=== PATIENT | female | born 1930 | race Caucasian/White ===

== ENCOUNTER 2017-11-18 22:23 | Inpatient (IN) | payer MEDICARE ==
[~2017-11-18] VITALS: Ht 152.4 cm; Wt 53.5 kg
[2017-11-18 22:55] LABS: BASOPHILS # (AUTO) 0.1 K/uL (0.0-8.0); BASOPHILS % (AUTO) 1.1 % (0.0-2.0); EOSINOPHILS # (AUTO) 0.2 K/uL (0.0-0.7); EOSINOPHILS % (AUTO) 2.5 % (0.0-7.0); HEMATOCRIT 31.6 % (31.2-41.9); HEMOGLOBIN 10.8 g/dL (10.9-14.3); LYMPHOCYTES # (AUTO) 2.1 K/uL (20.0-40.0); LYMPHOCYTES % (AUTO) 30.2 % (20.5-51.5); MEAN CORPUSCULAR HEMOGLOBIN 29.8 uug (24.7-32.8); MEAN CORPUSCULAR HGB CONC 34 g/dL (32.3-35.6); MEAN CORPUSCULAR VOLUME 86.9 fL (75.5-95.3); MONOCYTES # (AUTO) 0.6 K/uL (2.0-10.0); MONOCYTES % (AUTO) 8.9 % (0.0-11.0); NEUTROPHILS % (AUTO) 57.3 % (38.5-71.5); PLATELET COUNT (AUTO) 246 K/uL (179-408); RED BLOOD CELL COUNT(AUTO) 3.63 MIL/uL (3.63-4.92)
--- NOTE | 2017-11-18 23:00 | NUR ---
EKG DONE PATIENT VERY CONFUSED ,AGITATED AT TIMES ,KEEPS ON MOVINGS ,NEEDS REORIENTATION ,EKG RESULT GIVEN TO MD :GENTRY
[2017-11-18 23:09] LABS: ALANINE AMINOTRANSFERASE 22 U/L (14-59); ALKALINE PHOSPHATASE 67 U/L (50-136); ASPARTATE AMINOTRANSFERASE 19 U/L (15-37); BILIRUBIN,DIRECT 0.1 mg/dL (0.0-0.2); BILIRUBIN,TOTAL 0.4 mg/dL (0.2-1.0); CARBON DIOXIDE 24 mmol/L (21-32); CHLORIDE 109 mmol/L (98-107); CREATININE 1.3 mg/dL (0.6-1.3); GLUCOSE 112 mg/dL (74-106); POTASSIUM 4.2 mmol/L (3.5-5.1); TOTAL PROTEIN, SERUM 7.3 g/dL (6.4-8.2); UREA NITROGEN, BLOOD 14 mg/dL (7-18)
[2017-11-18] MEDS ORDERED: MAG HYDROX/AL HYDROX/SIMETH 30 ML LIQUID UDC PO PRN (23:15)
[2017-11-18] MEDS ORDERED: MAGNESIUM HYDROXIDE 30 ML LIQUID UDC PO PRN (23:15)
[2017-11-18 23:19] LABS: ETHANOL < 3 MG/DL (0-0)
[2017-11-18 23:20] LABS: ACETAMINOPHEN < 2.0 ug/mL (10-30)
--- NOTE | 2017-11-18 23:39 | NUR ---
REPORT GIVENT Cathy PINEDA RN ,USING SBAR.
[2017-11-18] MEDS ORDERED: MAGN400O6 PO (23:47)
[2017-11-18] MEDS ORDERED: BISA-79 PO (23:47)
[2017-11-18] MEDS ORDERED: ZIPR20VI IM (23:47)
[2017-11-18] MEDS ORDERED: LEVO75TA PO (23:47)
[2017-11-18] MEDS ORDERED: DONE10TA44 PO (23:47)
[2017-11-18] MEDS ORDERED: SENN-22 PO (23:47)
[2017-11-18] MEDS ORDERED: QUET100T PO (23:47)
[2017-11-18] MEDS ORDERED: SILV50CR32 TP (23:47)
[2017-11-18] MEDS ORDERED: ENOX40DI SQ (23:47)
[2017-11-18] MEDS ORDERED: FAMO20TA41 PO (23:47)
[2017-11-18] MEDS ORDERED: ASPI81TA31 PO (23:47)
[2017-11-18] MEDS ORDERED: QUET25TA PO (23:47)
--- NOTE | 2017-11-18 23:48 | NUR ---
Pt. admitted to 139 A , under care of -VIKTORIA HEATON Belongs List completed,D/C HEPLOCK LEFT FA.V/S WNL .NO RESPIRATORY DISTRESS.
--- NOTE | 2017-11-18 23:50 | NUR ---
ADMISSION NOTE: Received a 86 y.o. Female from ER under the care of Dr. Russell/ Ash Blue CASH MANAGEMENT SPECIALIST in stable condition. Patient was originally from [facility] for treatment of UTI. According to the HOLD once medically cleared, patient remained agitated, confused and non compliant. She was then placed on the 5150 Hold for GD. Patient is alert to self only. Upon admission patient appears to be anxious, guarded, disheveled, tense, malodorous and agitated. Patient states "show me to the door", "I want to get out of here". Patient is a poor historian and poor insight. Oriented patient about the unit rules. Patient is confused and therefore is unable to comprehend to the unit rules or sign paperwork, co-signed with analyst food and beverage. Vital signs stable. Patient is able to ambulate with standby assist. Escorted her to the shower room for skin check and shower. long term assessment done. She was anxious and needs re-direction from staff. Noted raised bump with discoloration behind the left side of the neck, scabs on the left upper back, left elbows and bruise on the left outer thigh. Personal belongings completed. Safety initiated. Advisement and patient rights handbook given. Fall precautions observed. Will closely monitor.
[2017-11-19] MEDS: ACETAMINOPHEN 325 MG TABLET PO PRN ×2 (00:33→22:26)
[2017-11-19] MEDS: TEMAZEPAM 7.5 MG CAPSULE PO PRN ×2 (00:34→21:17)
--- NOTE | 2017-11-19 07:00 | NUR ---
PT SLEPT FIVE HOURS AND FIFTEEN MINUTES. PT SHOWS NO SIGNS OF DISTRESS. PT COOPERATIVE WITH CARE. PLEASANT WHEN APPROACHED BUT SOMETIMES AGGRESSIVE. REORIENTATION AND REDIRECTION NEEDED. SAFETY AND COMFORT PROVIDED. ALL NEEDS ARE MET.WILL ENDORSE TO DAYSHIFT NURSE FOR CONTINUITY OF CARE.
[2017-11-19 07:30] VITALS: BP 134/50
--- NOTE | 2017-11-19 07:30 | NUR ---
Recieved pt lying in bed, awake and oriented to her name but very forgetful of time and place. Color is slightly pale, and moves all extremeties well. Still paranoid and delusional stating that we are trying to stab her. Introduced my name and explained the reason of taking her blood pressure.
[2017-11-19 09:44] LABS: *BILIRUBIN,URIN NEGATIVE (NEGATIVE); *BLOOD, URINE 1+ (NEGATIVE); *CLARITY,URINE CLEAR (CLEAR); *COLOR,URINE YELLOW (YELLOW); *KETONES,URINE NEGATIVE (NEGATIVE); *PROTEIN,URINE NEGATIVE (NEGATIVE); *UROBILINOGEN,URINE 0.2 E.U./dl (NORMAL); LEUKOCYTE ESTERASE ,URINE TRACE (NEGATIVE); NITRITE, URINE NEGATIVE (NEGATIVE); PH,URINE 5.5 (5.0-8.0); UGLUCOSE NEGATIVE (NEGATIVE)
[2017-11-19 09:46] LABS: BACTERIA,URINE FEW /HPF (NONE SEEN); SQUAMOUS EPITHELIAL CELL,UR FEW /HPF (NONE SEEN)
--- NOTE | 2017-11-19 13:30 | NUR ---
Seen and examined by Dr Sharif with new orders.
[2017-11-19] MEDS ORDERED: BISACODYL 5 MG TABLET.DR PO PRN (15:00)
[2017-11-19] MEDS ORDERED: MAGNESIUM HYDROXIDE 30 ML LIQUID UDC PO PRN (15:00)
[2017-11-19] MEDS ORDERED: FAMOTIDINE 20 MG TABLET PO SCH (15:00)
--- NOTE | 2017-11-19 15:20 | NUR ---
Keflex antibiotic medication given orally as ordered.
[2017-11-19] MEDS: CEPHALEXIN MONOHYDRATE 250 MG CAPSULE PO SCH ×2 (15:33→21:18)
[2017-11-19 17:38] VITALS: BP 117/63
[2017-11-19 20:04] VITALS: BP 132/65
[2017-11-19] MEDS: LORAZEPAM 0.5 MG TABLET PO PRN (22:26)
[2017-11-19] MEDS: RIVASTIGMINE TARTRATE 1.5 MG CAPSULE PO SCH (23:50)
[2017-11-19] MEDS: risperiDONE 0.25 MG TABLET PO SCH (23:51)
[2017-11-20] MEDS: CEPHALEXIN MONOHYDRATE 250 MG CAPSULE PO SCH ×3 (06:16→22:05)
[2017-11-20] MEDS: LEVOTHYROXINE SODIUM 75 MCG TABLET PO SCH (06:16)
[2017-11-20 07:52] VITALS: BP 115/52
[2017-11-20] MEDS: LORAZEPAM 0.5 MG TABLET PO PRN ×2 (09:06→12:44)
[2017-11-20] MEDS: risperiDONE 0.25 MG TABLET PO SCH ×2 (09:07→20:23)
[2017-11-20] MEDS: ASPIRIN 81 MG TAB.CHEW PO SCH (09:07)
[2017-11-20] MEDS: FAMOTIDINE 20 MG TABLET PO SCH (09:07)
[2017-11-20] MEDS: RIVASTIGMINE TARTRATE 1.5 MG CAPSULE PO SCH ×2 (09:07→20:23)
[2017-11-20] MEDS: SENNOSIDES/DOCUSATE SODIUM TABLET PO SCH (09:08)
[2017-11-20] MEDS: ENOXAPARIN SODIUM 30 MG/0.3 ML DISP.SYRIN SQ SCH (09:09)
[2017-11-20] MEDS: SILVER SULFADIAZINE 1% CREAM 50 GM TP SCH (09:10)
[2017-11-20] MEDS: ACETAMINOPHEN 325 MG TABLET PO PRN (12:44)
[2017-11-20 15:18] VITALS: BP 115/50
[2017-11-20 20:00] VITALS: BP 141/59
[2017-11-21] MEDS: CEPHALEXIN MONOHYDRATE 250 MG CAPSULE PO SCH ×3 (06:51→21:26)
[2017-11-21] MEDS: LEVOTHYROXINE SODIUM 75 MCG TABLET PO SCH (06:51)
[2017-11-21 07:30] VITALS: BP 170/50
[2017-11-21] MEDS: LORAZEPAM 0.5 MG TABLET PO PRN (07:49)
[2017-11-21] MEDS: FAMOTIDINE 20 MG TABLET PO SCH (08:16)
[2017-11-21] MEDS: RIVASTIGMINE TARTRATE 1.5 MG CAPSULE PO SCH ×2 (08:16→20:27)
[2017-11-21] MEDS: risperiDONE 0.25 MG TABLET PO SCH ×2 (08:16→20:27)
[2017-11-21] MEDS: ASPIRIN 81 MG TAB.CHEW PO SCH (08:16)
[2017-11-21] MEDS: SENNOSIDES/DOCUSATE SODIUM TABLET PO SCH (08:16)
[2017-11-21] MEDS: SILVER SULFADIAZINE 1% CREAM 50 GM TP SCH (08:17)
[2017-11-21] MEDS: ENOXAPARIN SODIUM 30 MG/0.3 ML DISP.SYRIN SQ SCH (08:19)
[2017-11-21] MEDS: AMLODIPINE 5 MG TABLET PO SCH ×2 (12:19→20:28)
[2017-11-21 16:00] VITALS: BP 161/58
--- NOTE | 2017-11-21 16:21 | NUR ---
Initial DC Instructions: Patient currently resides at an & [[address] [place] [address]; [phone]]. Spoke with Kishore at the [facility] ([phone]) who states the patient can return there when ready for discharge. Given patient's current state, patient may benefit from temporary SNF placement. SW will continue to collaborate with pt, B&C, and MD regarding most appropriate discharge plans for this patient. SW will form a safe and proper discharge plan.
[2017-11-21 20:01] VITALS: BP 160/57
[2017-11-21 21:27] VITALS: BP 150/65
[2017-11-22] MEDS: CEPHALEXIN MONOHYDRATE 250 MG CAPSULE PO SCH ×2 (06:02→13:14)
[2017-11-22] MEDS: LEVOTHYROXINE SODIUM 75 MCG TABLET PO SCH (06:02)
[2017-11-22 07:30] VITALS: BP 140/64
[2017-11-22] MEDS: ENOXAPARIN SODIUM 30 MG/0.3 ML DISP.SYRIN SQ SCH (08:12)
[2017-11-22] MEDS: SILVER SULFADIAZINE 1% CREAM 50 GM TP SCH (08:12)
[2017-11-22] MEDS: SENNOSIDES/DOCUSATE SODIUM TABLET PO SCH (08:32)
[2017-11-22] MEDS: FAMOTIDINE 20 MG TABLET PO SCH (08:32)
[2017-11-22] MEDS: ACETAMINOPHEN 325 MG TABLET PO PRN (08:32)
[2017-11-22] MEDS: risperiDONE 0.25 MG TABLET PO SCH (08:32)
[2017-11-22] MEDS: ASPIRIN 81 MG TAB.CHEW PO SCH (08:32)
[2017-11-22] MEDS: RIVASTIGMINE TARTRATE 1.5 MG CAPSULE PO SCH (08:32)
[2017-11-22] MEDS: AMLODIPINE 5 MG TABLET PO SCH (08:35)
[2017-11-22 16:20] VITALS: BP 134/64
[2017-11-22 17:28] LABS: BASOPHILS % (AUTO) 0.2 % (0.0-2.0); EOSINOPHILS # (AUTO) 0.1 K/uL (0.0-0.7); EOSINOPHILS % (AUTO) 0.5 % (0.0-7.0); HEMATOCRIT 34.5 % (31.2-41.9); HEMOGLOBIN 11.6 g/dL (10.9-14.3); LYMPHOCYTES # (AUTO) 1.6 K/uL (20.0-40.0); LYMPHOCYTES % (AUTO) 11.9 % (20.5-51.5); MEAN CORPUSCULAR HEMOGLOBIN 29.5 uug (24.7-32.8); MEAN CORPUSCULAR HGB CONC 34 g/dL (32.3-35.6); MEAN CORPUSCULAR VOLUME 87.9 fL (75.5-95.3); MONOCYTES # (AUTO) 1.1 K/uL (2.0-10.0); MONOCYTES % (AUTO) 8.1 % (0.0-11.0); NEUTROPHILS # (AUTO) 10.7 K/uL (1.8-8.9); NEUTROPHILS % (AUTO) 79.3 % (38.5-71.5); PLATELET COUNT (AUTO) 295 K/uL (179-408); RED BLOOD CELL COUNT(AUTO) 3.93 MIL/uL (3.63-4.92); WHITE BLOOD COUNT (AUTO) 13.5 K/uL (3.8-11.8)
[2017-11-22 17:37] LABS: CARBON DIOXIDE 23 mmol/L (21-32); CHLORIDE 105 mmol/L (98-107); CREATININE 1.4 mg/dL (0.6-1.3); GLUCOSE 103 mg/dL (74-106); POTASSIUM 4.2 mmol/L (3.5-5.1); UREA NITROGEN, BLOOD 22 mg/dL (7-18)
[2017-11-22] MEDS ORDERED: TEMA7.5C2 PO (18:30)
[2017-11-22] MEDS ORDERED: CEPH-569 PO (18:30)
[2017-11-22] MEDS ORDERED: RISP0.2515 PO (18:30)
[2017-11-22] MEDS ORDERED: RIVA1.5C7 PO (18:30)
[2017-11-22] MEDS ORDERED: ACET325T53 PO (18:30)
[2017-11-22] MEDS ORDERED: SENN1TAB33 PO (18:30)
[2017-11-22] MEDS ORDERED: AMLO5TAB7 PO (18:30)
[2017-11-22] MEDS ORDERED: BISA10SU8 RC (18:30)
[2017-11-22] MEDS ORDERED: SILV50CR32 TP (18:30)
[2017-11-22] MEDS ORDERED: FAMO-130 PO (18:30)
[2017-11-22] MEDS ORDERED: MAG-55 PO (18:30)
[2017-11-22] MEDS ORDERED: LORA0.5T PO (18:30)
[2017-11-25] MEDS ORDERED: CLOT30CR24 TOP (10:30)
== END 2017-11-22 17:05 | DRG 885 ==
LOC: EDBD → ER 22:28 → GPS 23:56
PROVIDERS: ADMIT Psychiatry & Neurology Psychiatry; ATTEND Nurse Practitioner Acute Care
DX: F29 Unspecified psychosis not due to a substance or known physiological condition (principal); G93.40 Encephalopathy, unspecified; N39.0 Urinary tract infection, site not specified; F03.90 Unspecified dementia, unspecified severity, without behavioral disturbance, psychotic disturbance, mood disturbance, and anxiety; E03.9 Hypothyroidism, unspecified; I10 Essential (primary) hypertension; D64.9 Anemia, unspecified
CPT/HCPCS: 36415; 70030-TC; 70450; 71045; 85025; 86850; 86900; 86901; 87086; 93005; 97116; 97530; A4663; G0480; G0480-TC; J1650

== ENCOUNTER 2017-11-22 17:24 | Inpatient (IN) | payer MEDICARE ==
[~2017-11-22] VITALS: Ht 152.4 cm; Wt 53.5 kg
[~2017-11-22 17:24] MED LIST: ASPI81TA31 PO; BISA-79 PO; ENOX40DI SQ; FAMO20TA41 PO; LEVO75TA PO; MAGN400O6 PO; SENN-22 PO; SILV50CR32 TP
--- NOTE | 2017-11-22 17:32 | NUR ---
TELESTROKE ACTIVATED SPOKE WITH CERTIFIED OPHTHALMIC SURGICAL ASSISTANT DR MITCHELL SUPPORT ENGINEER.
--- NOTE | 2017-11-22 17:50 | NUR ---
Nursing hands off report received from nursing dimension stone quarry supervisor Norberto & U nurse Tobi. Learning And Development Associate assumes care now. Patient is waiting for the [facility] hospitalist's callback. "No TPA, no thrombectomy and no aggressive treatment" recommended per TELE STROKE neurologist Guadalupe. Patient is for admission to 2nd floor.
--- NOTE | 2017-11-22 17:55 | NUR ---
Per MHU nurse Tobi, this patient's baseline is non-ambulatory, whispers incomprehensible words with no meaningful conversation but the left facial droop & left arm weakness are new.
[2017-11-22] MEDS ORDERED: IOHEXOL 350 100 ML INFUS..BTL ONE (17:56)
[2017-11-22] MEDS ORDERED: SWABABLE VALVE TRANSFER SET EA MC ONE (17:56)
[2017-11-22] MEDS ORDERED: IV NORMAL SALINE 250 ML IV ONE (17:56)
[2017-11-22] MEDS ORDERED: NORMAL SALINE FLUSH 10 ML DISP.SYRIN ONE (17:56)
[2017-11-22 18:11] LABS: CARBON DIOXIDE 25 mmol/L (21-32); CHLORIDE 106 mmol/L (98-107); CREATININE 1.4 mg/dL (0.6-1.3); GLUCOSE 101 mg/dL (74-106); UREA NITROGEN, BLOOD 23 mg/dL (7-18)
[2017-11-22 18:13] LABS: BASOPHILS # (AUTO) 0.1 K/uL (0.0-8.0); BASOPHILS % (AUTO) 0.5 % (0.0-2.0); EOSINOPHILS # (AUTO) 0.1 K/uL (0.0-0.7); EOSINOPHILS % (AUTO) 0.4 % (0.0-7.0); HEMATOCRIT 34.7 % (31.2-41.9); HEMOGLOBIN 11.8 g/dL (10.9-14.3); LYMPHOCYTES # (AUTO) 2.1 K/uL (20.0-40.0); LYMPHOCYTES % (AUTO) 13.9 % (20.5-51.5); MEAN CORPUSCULAR HEMOGLOBIN 29.7 uug (24.7-32.8); MEAN CORPUSCULAR HGB CONC 34 g/dL (32.3-35.6); MEAN CORPUSCULAR VOLUME 87.7 fL (75.5-95.3); MONOCYTES # (AUTO) 1.2 K/uL (2.0-10.0); MONOCYTES % (AUTO) 7.6 % (0.0-11.0); NEUTROPHILS % (AUTO) 77.6 % (38.5-71.5); PLATELET COUNT (AUTO) 251 K/uL (179-408); RED BLOOD CELL COUNT(AUTO) 3.96 MIL/uL (3.63-4.92); WHITE BLOOD COUNT (AUTO) 15.4 K/uL (3.8-11.8)
[2017-11-22 18:16] LABS: ALANINE AMINOTRANSFERASE 22 U/L (14-59); ALKALINE PHOSPHATASE 73 U/L (50-136); ASPARTATE AMINOTRANSFERASE 24 U/L (15-37); BILIRUBIN,DIRECT 0.1 mg/dL (0.0-0.2); BILIRUBIN,TOTAL 0.6 mg/dL (0.2-1.0); TOTAL PROTEIN, SERUM 7.4 g/dL (6.4-8.2)
[2017-11-22] MEDS ORDERED: FAMO-130 PO (18:30)
[2017-11-22] MEDS ORDERED: SILV50CR32 TP (18:30)
[2017-11-22] MEDS ORDERED: RISP0.2515 PO (18:30)
[2017-11-22] MEDS ORDERED: VANCOMYCIN IV 1,000 MG in IV DEXTROSE 5% 250 ML IV ONE (18:30)
[2017-11-22] MEDS ORDERED: AMLO5TAB7 PO (18:30)
[2017-11-22] MEDS ORDERED: PIPERACILLIN SODIUM/TAZOBACTAM 3.375 G in IV DEXTROSE 5% 50 ML IV ONE (18:30)
[2017-11-22] MEDS ORDERED: MAG-55 PO (18:30)
[2017-11-22] MEDS ORDERED: VANCOMYCIN IV 200 ML ONE (18:30)
[2017-11-22] MEDS ORDERED: ACET325T53 PO (18:30)
[2017-11-22] MEDS ORDERED: RIVA1.5C7 PO (18:30)
[2017-11-22] MEDS ORDERED: SENN1TAB33 PO (18:30)
[2017-11-22] MEDS ORDERED: TEMA7.5C2 PO (18:30)
[2017-11-22] MEDS ORDERED: LORA0.5T PO (18:30)
[2017-11-22] MEDS ORDERED: PIPERACILLIN/TAZOBACTAM/D5W 50 ML IV ONE (18:30)
[2017-11-22] MEDS ORDERED: BISA10SU8 RC (18:30)
[2017-11-22] MEDS ORDERED: CEPH-569 PO (18:30)
[2017-11-22] MEDS ORDERED: ACETAMINOPHEN 325 MG TABLET PO PRN (18:45)
[2017-11-22] MEDS ORDERED: MAGNESIUM HYDROXIDE 30 ML LIQUID UDC PO PRN (18:45)
[2017-11-22] MEDS ORDERED: HYDROCODONE/APAP 5-325MG TABLET PO PRN (18:45)
[2017-11-22] MEDS ORDERED: ONDANSETRON 4 MG/2 ML VIAL IV PRN (18:45)
[2017-11-22] MEDS ORDERED: IV NORMAL SALINE 500 ML BAG IV ONE (19:00)
[2017-11-22 19:13] LABS: *BILIRUBIN,URIN 1+ (NEGATIVE); *BLOOD, URINE Trace-intact (NEGATIVE); *CLARITY,URINE CLEAR (CLEAR); *COLOR,URINE YELLOW (YELLOW); *KETONES,URINE 1+ (NEGATIVE); *PROTEIN,URINE 1+ (NEGATIVE); *UROBILINOGEN,URINE 0.2 E.U./dl (NORMAL); LEUKOCYTE ESTERASE ,URINE NEGATIVE (NEGATIVE); NITRITE, URINE NEGATIVE (NEGATIVE); PH,URINE 5.5 (5.0-8.0); UGLUCOSE NEGATIVE (NEGATIVE)
--- NOTE | 2017-11-22 19:24 | NUR ---
Patient is waiting for telemetry bed & nurse. Patient is more alert, moving all extremities. IV vancomycin started by BRANDYN Ashley. 1st liter bag of Normal saline bolus started by me. SBAR to RN Isael
[2017-11-22 19:25] LABS: THYROID STIMULATING HORMONE 7.204 mIU/mL (0.358-3.740)
[2017-11-22 19:33] LABS: *AMPHETAMINE, URINE NEGATIVE (NEGATIVE); *BARBITURATE, URINE NEGATIVE (NEGATIVE); *CANNABINOID, URINE NEGATIVE (NEGATIVE); *COCCAINE, URINE NEGATIVE (NEGATIVE); *OPIATE, URINE NEGATIVE (NEGATIVE); *PHENCYCLIDINE SCREEN,URINE NEGATIVE (NEGATIVE)
--- NOTE | 2017-11-22 19:33 | NUR ---
Assumed care of patient. Patient remains in bed, pending inpatient admission to telemetry under Dr Henriquez. patient to be admitted to bed 210 under RnMartha. Patient in bed, Vancomycin infusing, initiated by AM shift RN. Will continue to monitor patient.
[2017-11-22 19:39] LABS: MUCUS,URINE MODERATE /LPF (0-FEW); SQUAMOUS EPITHELIAL CELL,UR FEW /HPF (NONE SEEN); WBC,URINE 0-3 /HPF (0-3)
--- NOTE | 2017-11-22 19:50 | NUR ---
Report given to Martha AHUMADA on telemetry
--- NOTE | 2017-11-22 19:51 | NUR ---
CT was complete as inpatient , Telemetry Charge Nurse Glory.
[2017-11-22 20:00] VITALS: BP 142/56
--- NOTE | 2017-11-22 20:15 | NUR ---
PATIENT FROM ER DX: R/O TIA PER SUPPLIER MANAGER CT SCAN RESULT NO EVIDENCE OF ACUTE INTRACRANIAL MASS .UPON ASSESSMENT PATIENT VERY CONFUSED . ALOC, DOESN'T FOLLOW COMMANDS . ANXIOUS AND AT TIMES AGGRESSIVE AND FIGHTS.SAFETY MEASURES DONE AND ORIENTED PATIENT WITH ROOM AND EQUIPMENT . BED ALARM ON .PHOTO TAKEN ON PATIENT SKIN INJURY AND PLACED WC CONSULT .INCONTINENT OF URINE AND CHANGED SOILED LINENS AND GOWN .
--- NOTE | 2017-11-22 20:30 | NUR ---
NIHSS SCALE SCORE IS HIGH 21. UNABLE TO DO IT ACCURATELY PATIENT CONFUSED ,UNABLE TO FOLLOW INSTRUCTION AND COMMANDS .
[2017-11-22] MEDS ORDERED: BLOOD SUGAR DIAGNOSTIC 1 EACH STRIP VI SCH (21:00)
--- NOTE | 2017-11-22 21:00 | NUR ---
NURSING SWALLOW EVALUATION DONE PATIENT FAILED.CONFUSED . UNABLE TO FOLLOW COMMANDS .
--- NOTE | 2017-11-22 21:00 | NUR ---
SLEEPING IN BED . EASILY AROUSABLE . NO RESPIRATORY DISTRESS NOTED , HOB . MOVED ALL EXTREMITIES ,BUT DOES NOT FOLLOWS COMMANDS .
[2017-11-22] MEDS: IV NS 1000 ML 1,000 ML IV SCH (23:16)
[2017-11-22] MEDS: BLOOD SUGAR DIAGNOSTIC 1 EACH STRIP VI SCH (23:27)
[2017-11-23 00:43] VITALS: BP 134/54
[2017-11-23] MEDS: PIPERACILLIN/TAZOBACTAM/D5W 3.375 G in PREMIXED 1 EACH IV SCH ×3 (03:10→17:00)
[2017-11-23] MEDS: IV NS 1000 ML 1,000 ML IV SCH ×3 (05:17→23:49)
[2017-11-23 05:22] VITALS: BP 126/51
[2017-11-23] MEDS: BLOOD SUGAR DIAGNOSTIC 1 EACH STRIP VI SCH ×4 (06:51→23:50)
[2017-11-23 07:20] LABS: BASOPHILS # (AUTO) 0.1 K/uL (0.0-8.0); BASOPHILS % (AUTO) 0.6 % (0.0-2.0); EOSINOPHILS # (AUTO) 0.2 K/uL (0.0-0.7); EOSINOPHILS % (AUTO) 1.7 % (0.0-7.0); HEMATOCRIT 30.2 % (31.2-41.9); HEMOGLOBIN 10.5 g/dL (10.9-14.3); LYMPHOCYTES % (AUTO) 9.7 % (20.5-51.5); MEAN CORPUSCULAR HEMOGLOBIN 30.4 uug (24.7-32.8); MEAN CORPUSCULAR HGB CONC 35 g/dL (32.3-35.6); MEAN CORPUSCULAR VOLUME 87.6 fL (75.5-95.3); MONOCYTES # (AUTO) 0.8 K/uL (2.0-10.0); MONOCYTES % (AUTO) 7.6 % (0.0-11.0); NEUTROPHILS % (AUTO) 80.4 % (38.5-71.5); PLATELET COUNT (AUTO) 270 K/uL (179-408); RED BLOOD CELL COUNT(AUTO) 3.45 MIL/uL (3.63-4.92)
[2017-11-23 07:35] LABS: CARBON DIOXIDE 24 mmol/L (21-32); CHLORIDE 107 mmol/L (98-107); CHOLESTEROL 161 mg/dL (<200); CREATININE 1.2 mg/dL (0.6-1.3); GLUCOSE 80 mg/dL (74-106); HDL CHOLESTEROL 65 mg/dL (40-60); MAGNESIUM 1.8 mg/dL (1.8-2.4); PHOSPHOROUS 3.2 mg/dL (2.5-4.9); POTASSIUM 3.5 mmol/L (3.5-5.1); TRIGLYCERIDES 83 MG/DL (30-150); UREA NITROGEN, BLOOD 20 mg/dL (7-18)
[2017-11-23 08:00] VITALS: BP 144/56
[2017-11-23] MEDS: ASPIRIN 81 MG TAB.CHEW PO SCH ×2 (09:45→17:32)
--- NOTE | 2017-11-23 10:54 | NUR ---
As reported by community association manager, Pt's valuables remain in MHU.
[2017-11-23 11:50] VITALS: BP 124/44
--- NOTE | 2017-11-23 13:40 | NUR ---
Clinical pharmacy note-Vancomycin dosing per pharmacy Subjective: To continue Vancomycin dosing on this 86 yo female patient for sepsis, likely UTI Objective: BUN 20 Scr 1.2 WBC 10 Temp 97.8 ht 152.4 cm wt 53.5 kg Assessment/Plan: Patient received vanco 1gm IVPB x1 yesterday at 1830. Due to unstable srcr, will dose by level. Vanco random level ordered for today at 1700 (pending). Will review the level & re-dose if appropriate. Will monitor daily. Addendum: 11/23/17 at 1811 by CAIO STROUD RANDOM VANCOMYCIN LEVEL 6.7 WILL GIVE VANCOMYCIN 1GM IVPB THIS EVENING REPEAT RANDOM LEVEL TOMORROW
--- NOTE | 2017-11-23 14:56 | NUR ---
WOUND CARE CONSULT: PT PRESENTS WITH BREASTFOLD REDNESS AND RASH, SOME BRUISING AND SKIN STAINING OF BUTTOCKS, PRESENT ON ADMISSION. RECOMMENDATIONS MADE FOR SKIN PROTECTION AND CARE. DISCUSSED WITH NURSING STAFF. WILL SEE PRN. JOYNER IN AGREEMENT WITH PLAN OF CARE. Addendum: 11/23/17 at 1458 by VITOR SPARKS RN Amended: Links added.
[2017-11-23 15:56] VITALS: BP 121/44
[2017-11-23] MEDS: CLOTRIMAZOLE 1% CREAM 30 GM TUBE TOP SCH (17:00)
--- NOTE | 2017-11-23 17:32 | NUR ---
ASPIRIN GIVEN AFTER SWALLOW EVAL CLEARANCE. CONTINUE TO MONITOR PTS.
[2017-11-23] MEDS ORDERED: VANCOMYCIN IV 1 G in PREMIXED 0 EACH IV ONE (18:15)
[2017-11-23] MEDS ORDERED: OLANZAPINE 10 MG VIAL IM PRN (19:00)
[2017-11-23 20:00] VITALS: BP 136/48
--- NOTE | 2017-11-23 20:00 | NUR ---
Received Pt to care, confused and disoriented, but able to follow some commands. VS stable, 20g IV infusing NS 100ml/hr to (R) hand. Redness noted to (B) breastfold and sacral areas, Z guard applied. Scheduled HS Culturelle refused. In no acute physical distress at this time.
[2017-11-23] MEDS: LACTOBACILLUS RHAMNOSUS GG 1 EACH CAPSULE PO SCH ×2 (20:53→20:59)
[2017-11-24 00:04] VITALS: BP 123/63
[2017-11-24] MEDS: BLOOD SUGAR DIAGNOSTIC 1 EACH STRIP VI SCH ×4 (00:27→23:10)
[2017-11-24] MEDS: PIPERACILLIN/TAZOBACTAM/D5W 3.375 G in PREMIXED 1 EACH IV SCH ×3 (01:27→17:04)
--- NOTE | 2017-11-24 01:35 | NUR ---
Midnight BS initially 58. Sierra juice given and BS re-checked with a result of 103.
[2017-11-24 05:09] VITALS: BP 140/60
--- NOTE | 2017-11-24 05:27 | NUR ---
Small skin opening noted to medial anterior suprapubic area, no s/s of infection. Photograph taken and placed in chart. investment banker aware. BMx2, loose, water greenish stool. Repositioned q 2 hours, bony prominences padded, Z guard applied to sacral area. Skin kept clean and dry. AM BS 73. 20v IV to (R) hand remains intact infusing NS 100ml/hr. VS stable, breathing even and unlabored, in no acute distress. Care to be endorsed to day shift RN.
[2017-11-24] MEDS: Z GUARD REMEDY PASTE 57 GM TUBE TOP PRN ×2 (05:31→10:30)
--- NOTE | 2017-11-24 07:20 | NUR ---
RECVD SHIFT REPORT. PATIENT RECEVD RESTING IN BED ALERT AND RESPONSIVE, NO DISTRESS NOTED, SIDE RAILS UP X2, BED ALARM ON, DVT PUMPS FUNCTIONING CONTINUE TO MONITOR. IV FLUIDS NS RUNNING AT 100ML/HR
[2017-11-24] MEDS: LACTOBACILLUS RHAMNOSUS GG 1 EACH CAPSULE PO SCH ×2 (08:35→20:13)
[2017-11-24] MEDS: ASPIRIN 81 MG TAB.CHEW PO SCH (08:35)
[2017-11-24] MEDS: CLOTRIMAZOLE 1% CREAM 30 GM TUBE TOP SCH ×2 (08:35→17:04)
[2017-11-24 08:37] VITALS: BP 157/58
--- NOTE | 2017-11-24 09:10 | NUR ---
Clinical pharmacy note-Vancomycin dosing per pharmacy Subjective: To continue Vancomycin dosing on this 86 yo female patient for sepsis, likely UTI Objective: BUN 20 (11/23) Scr 1.2 (11/23) WBC 10 (11/23) Temp 97.8 ht 152.4 cm wt 53.5 kg Assessment/Plan: Patient received vanco 1gm IVPB x1 yesterday at 1800. Due to unstable srcr, will dose by level. Vanco random level ordered for today at 1700 (pending). Will review the level & re-dose if appropriate. Will monitor daily. Addendum: 11/24/17 at 1846 by CAIO STROUD RANDOM VANCOMYCIN LEVEL 13.5. GIVE ANOTHER 1GM OF VANCOMYCIN TODAY REPEAT RANDOM LEVEL TOMORROW
[2017-11-24 10:32] LABS: BASOPHILS # (AUTO) 0.1 K/uL (0.0-8.0); BASOPHILS % (AUTO) 0.6 % (0.0-2.0); EOSINOPHILS # (AUTO) 0.2 K/uL (0.0-0.7); EOSINOPHILS % (AUTO) 1.5 % (0.0-7.0); HEMATOCRIT 30.9 % (31.2-41.9); HEMOGLOBIN 10.6 g/dL (10.9-14.3); LYMPHOCYTES # (AUTO) 1.3 K/uL (20.0-40.0); LYMPHOCYTES % (AUTO) 11.7 % (20.5-51.5); MEAN CORPUSCULAR HEMOGLOBIN 29.9 uug (24.7-32.8); MEAN CORPUSCULAR HGB CONC 34 g/dL (32.3-35.6); MEAN CORPUSCULAR VOLUME 87.4 fL (75.5-95.3); MONOCYTES # (AUTO) 0.8 K/uL (2.0-10.0); MONOCYTES % (AUTO) 6.9 % (0.0-11.0); NEUTROPHILS # (AUTO) 8.7 K/uL (1.8-8.9); NEUTROPHILS % (AUTO) 79.3 % (38.5-71.5); PLATELET COUNT (AUTO) 337 K/uL (179-408); RED BLOOD CELL COUNT(AUTO) 3.53 MIL/uL (3.63-4.92)
[2017-11-24 10:37] LABS: CARBON DIOXIDE 24 mmol/L (21-32); CHLORIDE 109 mmol/L (98-107); CREATININE 1.2 mg/dL (0.6-1.3); GLUCOSE 113 mg/dL (74-106); POTASSIUM 3.4 mmol/L (3.5-5.1); UREA NITROGEN, BLOOD 11 mg/dL (7-18)
[2017-11-24] MEDS ORDERED: POTASSIUM CHLORIDE 20 MEQ TAB.PRT.SR PO ONE (11:15)
[2017-11-24 11:42] VITALS: BP 130/55
[2017-11-24] MEDS: IV NS 1000 ML 1,000 ML IV SCH ×2 (11:54→19:48)
[2017-11-24] MEDS: POTASSIUM CHLORIDE 10 MEQ, LIDOCAINE-MPF 1% 1 ML in IV DEXTROSE 5% 100 ML IV SCH ×2 (12:48→13:55)
[2017-11-24 15:49] VITALS: BP 150/78
--- NOTE | 2017-11-24 18:13 | NUR ---
Patient has been cooperative with care, no distress noted throughout shift. oriented to self only needs frequent redirection. Patient in bed, no distress noted at this time, bed in low position, side rails up x2, bed alarm on. DVT pumps on.
[2017-11-24 19:00] VITALS: BP 145/69
--- NOTE | 2017-11-24 19:30 | NUR ---
Received patient from day shift nurse. Patient is stable with no acute distress noted. Oriented to self only & needs frequent redirection. IV fluids running into left hand at 100cc/hr with no signs of infiltration or swelling at IV site. Vital signs are within range at start of shift. Bed in low position, locked, x2 side rails up. Bed alarm on. DVT pumps on patient & functioning. Call light within reach. Will continue to monitor through shift.
[2017-11-24] MEDS ORDERED: VANCOMYCIN IV 1 G in PREMIXED 0 EACH IV ONE (20:00)
[2017-11-25] MEDS: PIPERACILLIN/TAZOBACTAM/D5W 3.375 G in PREMIXED 1 EACH IV SCH ×3 (01:31→18:56)
[2017-11-25 04:00] VITALS: BP 155/53
[2017-11-25] MEDS: BLOOD SUGAR DIAGNOSTIC 1 EACH STRIP VI SCH ×4 (06:12→23:00)
[2017-11-25] MEDS: IV NS 1000 ML 1,000 ML IV SCH ×2 (06:12→16:18)
[2017-11-25 06:23] LABS: BASOPHILS # (AUTO) 0.2 K/uL (0.0-8.0); BASOPHILS % (AUTO) 2.9 % (0.0-2.0); EOSINOPHILS # (AUTO) 0.1 K/uL (0.0-0.7); EOSINOPHILS % (AUTO) 1.7 % (0.0-7.0); HEMATOCRIT 27.8 % (31.2-41.9); HEMOGLOBIN 9.5 g/dL (10.9-14.3); LYMPHOCYTES # (AUTO) 1.7 K/uL (20.0-40.0); LYMPHOCYTES % (AUTO) 19.8 % (20.5-51.5); MEAN CORPUSCULAR HEMOGLOBIN 29.9 uug (24.7-32.8); MEAN CORPUSCULAR HGB CONC 34 g/dL (32.3-35.6); MEAN CORPUSCULAR VOLUME 86.9 fL (75.5-95.3); MONOCYTES # (AUTO) 0.9 K/uL (2.0-10.0); MONOCYTES % (AUTO) 10.1 % (0.0-11.0); NEUTROPHILS # (AUTO) 5.6 K/uL (1.8-8.9); NEUTROPHILS % (AUTO) 65.5 % (38.5-71.5); PLATELET COUNT (AUTO) 318 K/uL (179-408); RED BLOOD CELL COUNT(AUTO) 3.19 MIL/uL (3.63-4.92); WHITE BLOOD COUNT (AUTO) 8.6 K/uL (3.8-11.8)
[2017-11-25 06:39] LABS: CARBON DIOXIDE 23 mmol/L (21-32); CHLORIDE 110 mmol/L (98-107); CREATININE 1.2 mg/dL (0.6-1.3); GLUCOSE 95 mg/dL (74-106); MAGNESIUM 1.5 mg/dL (1.8-2.4); PHOSPHOROUS 2.3 mg/dL (2.5-4.9); POTASSIUM 3.3 mmol/L (3.5-5.1); UREA NITROGEN, BLOOD 10 mg/dL (7-18)
--- NOTE | 2017-11-25 06:55 | NUR ---
Patient slept well during the night. Cooperative with care. All needs attended to. Kept clean, dry, & changed per soiling. Skin care provided. All medications administered per MD order. Blood sugar this AM at 95. Safety & comfort measures provided. Bed in low position, locked, x2 side rails up. Bed alarm on through out shift. Call light within reach. Will endorse to oncoming shift.
[2017-11-25] MEDS: LACTOBACILLUS RHAMNOSUS GG 1 EACH CAPSULE PO SCH ×2 (08:45→20:23)
[2017-11-25] MEDS: ASPIRIN 81 MG TAB.CHEW PO SCH (08:45)
[2017-11-25] MEDS: CLOTRIMAZOLE 1% CREAM 30 GM TUBE TOP SCH ×2 (08:55→17:14)
[2017-11-25] MEDS ORDERED: CLOT30CR24 TOP (10:30)
[2017-11-25 11:52] VITALS: BP 148/65
--- NOTE | 2017-11-25 13:18 | NUR ---
Clinical pharmacy note-Vancomycin dosing per pharmacy Subjective: To continue Vancomycin dosing on this 86 yo female patient for sepsis, likely UTI Objective: BUN 10 Scr 1.2 WBC 8.6 Temp 98 ht 152.4 cm wt 53.5 kg Assessment/Plan: Patient received vanco 1gm IVPB x1 yesterday at 1948. Due to unstable srcr and advanced age, will dose by level. Vanco random level ordered for today at 1700 (pending). Will review the level & re-dose if appropriate. Will monitor daily. Addendum: 11/25/17 at 1744 by CAIO STROUD RANDOM VANCOMYCIN LEVEL WAS SUPPOSE TO BE DRAWN AT 1700 TODAY INSTEAD LAB JEISON A T 0500 =18.0. CONTINUE VANCOMYCIN AT 1GM Q24H.
[2017-11-25] MEDS ORDERED: POTASSIUM CHLORIDE 20 MEQ TAB.PRT.SR PO ONE (14:30)
[2017-11-25] MEDS ORDERED: POTASSIUM CHLORIDE 20 MEQ POWDER PACKET PO ONE (14:45)
[2017-11-25 15:57] VITALS: BP 139/58
[2017-11-25] MEDS: MAGNESIUM SULFATE/D5W 100 ML IV SCH ×2 (16:16→17:15)
[2017-11-25] MEDS ORDERED: NEUTRA PHOS PACKET PO ONE (17:15)
--- NOTE | 2017-11-25 19:30 | NUR ---
Received patient in stable condition with no acute distress. Patient lying/resting comfortably at start of shift. Vital signs within range. Pertinent assessment completed. A/Ox1 with confusion. Noted with right hand 22G IV site running with IV fluid NS at 100cc/hr. No signs of infiltration or swelling noted at site. On ATB therapy. Bed placed in low position & locked at start of shift. Bed alarm in the on position. Call light within reach. Will continue to monitor through shift.
[2017-11-25] MEDS: VANCOMYCIN IV 1 G in PREMIXED 0 EACH IV SCH (19:44)
[2017-11-25 20:15] VITALS: BP 137/42
[2017-11-26] MEDS: PIPERACILLIN/TAZOBACTAM/D5W 3.375 G in PREMIXED 1 EACH IV SCH ×3 (01:07→17:08)
[2017-11-26] MEDS: IV NS 1000 ML 1,000 ML IV SCH ×3 (03:10→22:14)
[2017-11-26 05:00] VITALS: BP 159/56
[2017-11-26] MEDS: BLOOD SUGAR DIAGNOSTIC 1 EACH STRIP VI SCH ×3 (05:24→17:21)
[2017-11-26 06:19] LABS: CARBON DIOXIDE 23 mmol/L (21-32); CHLORIDE 110 mmol/L (98-107); CREATININE 1.1 mg/dL (0.6-1.3); GLUCOSE 89 mg/dL (74-106); MAGNESIUM 1.9 mg/dL (1.8-2.4); PHOSPHOROUS 2.5 mg/dL (2.5-4.9); POTASSIUM 3.5 mmol/L (3.5-5.1); UREA NITROGEN, BLOOD 6 mg/dL (7-18)
--- NOTE | 2017-11-26 06:25 | NUR ---
Blood sugar this AM at 89. Patient stable through shift & compliant with care. Needs frequent reorienting & redirecting with many periods of confusion. All needs attended to promptly. Skin care provided. Kept clean, dry, changed per soiling. All medications administered per MD order. Safety & comfort measures provided. Call light in reach. Will endorse to day shift nurse.
--- NOTE | 2017-11-26 07:20 | NUR ---
RECEIVED PATIENT ON BED ASLEEP. NO ACUTE DISTRESS NOTED. AAOX1. IV ACCESS ON RIGHT HAND #22 INTACT AND PATENT RUNNING NS @100CC/HR INFUSING WELL. ON [facility] SOFT DIET, TAKES PILLS CRUSHED WITH APPLESAUCE. NO PAIN/DISCOMFORT NOTED AT THIS TIME. COMFORT MEASURES PROVIDED CALL LIGHT WITHIN REACH. WILL CONTINUE TO MONITOR CLOSELY.
[2017-11-26] MEDS: ASPIRIN 81 MG TAB.CHEW PO SCH (08:12)
[2017-11-26] MEDS: LACTOBACILLUS RHAMNOSUS GG 1 EACH CAPSULE PO SCH ×2 (08:12→20:01)
[2017-11-26] MEDS: CLOTRIMAZOLE 1% CREAM 30 GM TUBE TOP SCH ×2 (08:13→17:08)
[2017-11-26 11:33] VITALS: BP 161/53
--- NOTE | 2017-11-26 14:11 | NUR ---
Clinical pharmacy note-Vancomycin dosing per pharmacy Subjective: To continue Vancomycin dosing on this 86 yo female patient for sepsis, likely UTI Objective: BUN 6 Scr 1.1 WBC 8.6(11/26) Temp 98.2 ht 152.4 cm wt 53.5 kg Assessment/Plan: Will continue Vancomycin 1 gram IV every 24hrs(third dose tonight at 1999) and draw trough by 4th dose(not ordered yet). Expected trough will be around 15 to 20. Will monitor renal function closely to adjust the dose if needed.
[2017-11-26 15:05] VITALS: BP 107/85
--- NOTE | 2017-11-26 18:45 | NUR ---
PATIENT PULLED OUT IV ON LEFT WRIST. REINSERTED NEW IV ACCESS ON THE RIGHT FOREARM #22 USING ASEPTIC TECHNIQUE, GOOD VENOUS RETURN NOTED. CONTINUED IV NS @100CC/HR INFUSING WELL. WILL CONTINUE TO MONITOR CLOSELY.
--- NOTE | 2017-11-26 19:25 | NUR ---
RECEIVED PT AWAKE, ALERT AND ORIENTEDX2. PT CONFUSED AND CAN FOLLOW COMMANDS. IV INTACT AND PATENT. PT SHOWS NO SIGNS OF DISTRESS. SAFETY AND COMFORT PROVIDED. WILL CONTINUE TO MONITOR.
[2017-11-26] MEDS: VANCOMYCIN IV 1 G in PREMIXED 0 EACH IV SCH (19:54)
[2017-11-26 20:35] VITALS: BP 172/90
[2017-11-27] VITALS (7 sets, daily range): BP systolic 140–210; BP diastolic 61–79
[2017-11-27] MEDS: BLOOD SUGAR DIAGNOSTIC 1 EACH STRIP VI SCH ×2 (00:20→05:45)
[2017-11-27] MEDS: PIPERACILLIN/TAZOBACTAM/D5W 3.375 G in PREMIXED 1 EACH IV SCH ×3 (01:06→17:27)
--- NOTE | 2017-11-27 06:35 | NUR ---
PT SLEPT THROUGHOUT THE SHIFT. PT SHOWS NO SIGNS OF DISTRESS. IV INTACT AND PATENT.PRESCRIBED MEDICATION GIVEN AND PT TOLERATED IT WELL. PT COOPERATIVE WITH CARE. SAFETY AND COMFORT PROVIDED. ALL NEEDS ARE MET. WILL ENDORSE ACCORDINGLY TO INCOMING NURSE FOR CONTINUITY OF CARE
[2017-11-27 06:42] LABS: BASOPHILS # (AUTO) 0.2 K/uL (0.0-8.0); BASOPHILS % (AUTO) 2.4 % (0.0-2.0); EOSINOPHILS # (AUTO) 0.3 K/uL (0.0-0.7); EOSINOPHILS % (AUTO) 4.3 % (0.0-7.0); HEMATOCRIT 28.1 % (31.2-41.9); HEMOGLOBIN 9.8 g/dL (10.9-14.3); LYMPHOCYTES # (AUTO) 1.4 K/uL (20.0-40.0); LYMPHOCYTES % (AUTO) 22.6 % (20.5-51.5); MEAN CORPUSCULAR HEMOGLOBIN 29.8 uug (24.7-32.8); MEAN CORPUSCULAR HGB CONC 35 g/dL (32.3-35.6); MEAN CORPUSCULAR VOLUME 85.4 fL (75.5-95.3); MONOCYTES # (AUTO) 0.5 K/uL (2.0-10.0); MONOCYTES % (AUTO) 8.1 % (0.0-11.0); NEUTROPHILS # (AUTO) 3.9 K/uL (1.8-8.9); NEUTROPHILS % (AUTO) 62.6 % (38.5-71.5); PLATELET COUNT (AUTO) 301 K/uL (179-408); RED BLOOD CELL COUNT(AUTO) 3.29 MIL/uL (3.63-4.92); WHITE BLOOD COUNT (AUTO) 6.3 K/uL (3.8-11.8)
[2017-11-27] MEDS: IV NS 1000 ML 1,000 ML IV SCH (07:02)
--- NOTE | 2017-11-27 07:10 | NUR ---
RN notes: Received patient in bed awake, alert and oriented x1, in no acute distress. PERRLA. Able to move all 4 extremities without discomfort. Speech is clear, though patient is confused at baseline. Fall precaution in place. IV site on LFA patent, IV fluids NS at 100cc/hr running. Will continue to monitor
[2017-11-27 07:25] LABS: CARBON DIOXIDE 21 mmol/L (21-32); CHLORIDE 113 mmol/L (98-107); CREATININE 1.1 mg/dL (0.6-1.3); GLUCOSE 78 mg/dL (74-106); MAGNESIUM 1.7 mg/dL (1.8-2.4); PHOSPHOROUS 2.9 mg/dL (2.5-4.9); POTASSIUM 3.5 mmol/L (3.5-5.1); UREA NITROGEN, BLOOD 5 mg/dL (7-18)
--- NOTE | 2017-11-27 08:00 | NUR ---
RN notes: Patient noted with elevated BP at 210/79 at this time. Patient is awake, alert and oriented x1, verbally responsive. Patient noted to be confused at baseline. Able to do ROM on all 4 extremities. Bilateral hand grasps equal and strong. PERRLA. Patient denies chest pain or SOB at this time. Speech is clear. HOUSE VISITOR Vera made aware. New orders received, noted and carried out. Will continue to monitor
[2017-11-27] MEDS: ASPIRIN 81 MG TAB.CHEW PO SCH (08:42)
[2017-11-27] MEDS: CLOTRIMAZOLE 1% CREAM 30 GM TUBE TOP SCH ×2 (08:42→17:27)
[2017-11-27] MEDS: LACTOBACILLUS RHAMNOSUS GG 1 EACH CAPSULE PO SCH ×2 (08:42→20:36)
[2017-11-27] MEDS ORDERED: TEMAZEPAM 7.5 MG CAPSULE PO PRN (08:45)
[2017-11-27] MEDS ORDERED: MAGNESIUM SULFATE/D5W 100 ML IV SCH (09:00)
[2017-11-27] MEDS ORDERED: ASPIRIN 81 MG TAB.CHEW PO SCH (09:00)
--- NOTE | 2017-11-27 09:00 | NUR ---
RN notes: Patient Bp rechecked at this time, noted at 152/69 VA of 69. VIKTORIA Gamez made aware. No acute change in LOC noted at this time. Will continue to monitor
[2017-11-27] MEDS: risperiDONE 0.25 MG TABLET PO SCH ×2 (09:50→20:36)
[2017-11-27] MEDS: RIVASTIGMINE TARTRATE 1.5 MG CAPSULE PO SCH ×2 (09:50→20:36)
[2017-11-27] MEDS: AMLODIPINE 5 MG TABLET PO SCH (09:50)
[2017-11-27] MEDS: SENNOSIDES/DOCUSATE SODIUM TABLET PO SCH (09:50)
[2017-11-27] MEDS: LEVOTHYROXINE SODIUM 75 MCG TABLET PO SCH (09:52)
--- NOTE | 2017-11-27 12:02 | NUR ---
Clinical pharmacy note-Vancomycin dosing per pharmacy Subjective: To continue Vancomycin dosing on this 86 yo female patient for sepsis, likely UTI Objective: BUN 5 Scr 1.1 WBC 6.3 Temp 97.5 ht 152.4 cm wt 53.5 kg Assessment/Plan: Will continue same dose of Vancomycin 1 gram IVPB every 24hrs for today. 4th dose tonight at 2000. Plan to draw trough by 4th dose (ordered for 11/27 at 1930- RN has been informed to hold 2000 dose if vanco trough level above 20 mcg/ml). Pharmacy will review the level in am & adjust the dose if needed.
--- NOTE | 2017-11-27 18:35 | NUR ---
RN notes: Patient is alert and oriented x1, confused at baseline. Up in the gerichair at this time. IV site on LFA patent. Continues on IV atb as ordered, no A/R noted. Reorient as needed. Fall precaution in place. Denies chest pain or SOB. PERRLA. No acute change in LOC. Able to move all 4 extremities without discomfort. Speech clear. All needs attended and met. Will continue to monitor
--- NOTE | 2017-11-27 19:20 | NUR ---
RECEIVED PT AWAKE, ALERT AND ORIENTEDX2. PT ON ELDON-CHAIR. PT SHOWS NO SIGNS OF DISTRESS. PT WANT TO GET OUT THE CHAIR AND WALK AROUND. SAFETY AND COMFORT PROVIDED. WILL CONTINUE TO MONITOR.
[2017-11-27] MEDS: VANCOMYCIN IV 1 G in PREMIXED 0 EACH IV SCH (19:41)
[2017-11-28] MEDS: PIPERACILLIN/TAZOBACTAM/D5W 3.375 G in PREMIXED 1 EACH IV SCH ×2 (02:12→10:23)
[2017-11-28 05:14] VITALS: BP 133/51
[2017-11-28] MEDS: LEVOTHYROXINE SODIUM 75 MCG TABLET PO SCH (06:05)
--- NOTE | 2017-11-28 06:16 | NUR ---
PT SHOWS NO SIGNS OF DISTRESS. IV INTACT AND PATENT. PRESCRIBED MEDICATION GIVEN AND PT TOLERATED IT WELL. ZYPREXIA TAKEN OUT OF THE PYXIS BUT WASTED BECAUSE PT WAS CALMER AND NOT SEVERELY AGIATED ALREADY WHEN IM ABOUT TO GIVE IT. CHARGE NURSE AWARE OF THE SITUATION.SAFETY AND COMFORT PROVIDED.ALL NEEDS ARE MET. WILL ENDORSE TO INCOMING NURSE FOR CONTINUITY OF CARE.
[2017-11-28] MEDS ORDERED: PANTOPRAZOLE SODIUM 40 MG TABLET.DR PO SCH (07:00)
[2017-11-28] MEDS: ASPIRIN 81 MG TAB.CHEW PO SCH (08:17)
[2017-11-28] MEDS: SENNOSIDES/DOCUSATE SODIUM TABLET PO SCH (08:18)
[2017-11-28] MEDS: LACTOBACILLUS RHAMNOSUS GG 1 EACH CAPSULE PO SCH (08:18)
[2017-11-28] MEDS: CLOTRIMAZOLE 1% CREAM 30 GM TUBE TOP SCH (08:18)
[2017-11-28] MEDS: RIVASTIGMINE TARTRATE 1.5 MG CAPSULE PO SCH (08:18)
[2017-11-28] MEDS: risperiDONE 0.25 MG TABLET PO SCH (08:18)
[2017-11-28] MEDS: AMLODIPINE 5 MG TABLET PO SCH (08:18)
--- NOTE | 2017-11-28 08:49 | NUR ---
Clinical pharmacy note-Vancomycin dosing per pharmacy Subjective: To continue Vancomycin dosing on this 86 yo female patient for sepsis, likely UTI Objective: BUN 5(11/27) Scr 1.1(11/27) WBC 6.3 (11/27) Temp 97.8 ht 152.4 cm wt 53.5 kg Vancomycin trough on 11/27 at 2000(30min later than ordered-extrapolated trough is 20) Assessment/Plan: Will decrease Vancomycin 1 gram IVPB to every 28hrs. 2nd dose tomorrow at 0000. Plan to draw trough by 4th dose (not ordered yet) for expected trough around 15.8. Will monitor daily.
--- NOTE | 2017-11-28 09:46 | NUR ---
Patient noted laying bed, no facial cues of pain, no signs of distress noted, multiple attempts to get out of bed, bed alarm in place, currently being redirected to lay in bed, took all AM medications , x3 bed rails in place, call light in reach, bed locked and in lowest position, all needs met at this time
[2017-11-28 11:40] VITALS: BP 128/86
--- NOTE | 2017-11-28 14:58 | NUR ---
[facility] discharged [facility] service at 1440, 157/80, 83 pulse, 96% on room air, 18 pulse, no facial cues of pain, no signs of distress noted, report given to Lisset AHUMADA of [facility], belongings accounted for, exit care provided, discharge instructions given, pictures of breast fold taken and placed in chart
[2017-11-29] MEDS ORDERED: VANCOMYCIN IV 1 G in PREMIXED 0 EACH IV SCH ×2
== END 2017-11-28 14:55 | DRG 69 ==
LOC: ER 17:26 → TELE 19:51 → EDBD 19:51 → MED 11-24 11:06
PROVIDERS: ADMIT Family Medicine; ATTEND Nurse Practitioner Acute Care
DX: G45.9 Transient cerebral ischemic attack, unspecified (principal); G93.41 Metabolic encephalopathy; R53.2 Functional quadriplegia; N39.0 Urinary tract infection, site not specified; F03.90 Unspecified dementia, unspecified severity, without behavioral disturbance, psychotic disturbance, mood disturbance, and anxiety; E03.9 Hypothyroidism, unspecified; D64.9 Anemia, unspecified; R29.810 Facial weakness; Z91.19 Patient's noncompliance with other medical treatment and regimen; Z79.82 Long term (current) use of aspirin; I70.0 Atherosclerosis of aorta
CPT/HCPCS: 36415; 70030-TC; 71045; 80307; 83605; 83735; 84100; 84443; 85025; 85651; 85730; 87040; 87086; 92526; 92610; 93005; 97110; 97116; 97165; 97530; 97535; A4663; J2001; J2358; J2405; J2543; J3370; J3475; J3480; J3490; J7030; J7040; J7050; J7060; Q9967